=== PATIENT | male | born 1995 | race Caucasian/White ===

== ENCOUNTER 2017-01-11 17:39 | Inpatient (IN) | payer MEDICARE, MEDICAID ==
[~2017-01-11] VITALS: Ht 165.1 cm; Wt 66.4 kg
--- NOTE | 2017-01-13 10:52 | CO ---
ADMIT: 01/11/2017 RM/LOC: 527 [facility] MR#: [id number] [address] REINALDO BARRIOS KAREN [address] [place] [address] Consultation SEX: M AGE: 21 : 1995 DATE OF CONSULTATION: 01/12/2017 ATTENDING PHYSICIAN: Wes Dang CONSULTING PHYSICIAN: Shiv Knox MD REASON FOR CONSULTATION: Chronic kidney disease, stage 5. HISTORY OF PRESENT ILLNESS: The patient is a 21-year-old gentleman, who was previously under the care of Dr. Soto, and established care with myself towards the end of last year. He has a history of end-stage renal disease the etiology of which is unclear. He had been on in-center hemodialysis for 2 to 3 months and eventually received a donor kidney transplant in May 2011. He had a kidney biopsy in the year 2013 that was consistent with chronic rejection. He eventually lost contact with his transplant center and according to the report that I received from the emergency room, he has been deemed not to be a candidate for a kidney transplant, which I believe is true. As far as his immune suppression, he has been on prednisone only. He reports that he had been unable to afford his medications and had been off immune suppression for quite a while. He also a hospitalization in [place] in June 2016 with decreased kidney function and hypertensive urgency. He had labs drawn yesterday and was noted to have a creatinine of around 7.5. This is consistent with his declining allograft function. I evaluated him at the bedside earlier this morning. He is accompanied to the room by his sister. He does not feel too bad. He has been eating and drinking okay. His urine output is okay. Denies any urinary complaints. He has sequelae of chronic kidney disease including anemia and metabolic acidosis. He denies any other focal complaints. Denies any nausea or dyschezia. He is sleeping fairly well, just some occasional weakness. REVIEW OF SYSTEMS: A complete review of system is otherwise negative in detail except as mentioned in history of present illness above. PAST MEDICAL HISTORY: 1. Chronic kidney disease, stage 5, etiology unclear. 2. donor kidney transplant in the year 2010. 3. Anemia in chronic kidney disease. 4. Hypertension. 5. Hypertensive urgency. 6. Kidney transplant. 7. Left arm fistula placement, this fistula has failed. ALLERGIES: NO KNOWN DRUG ALLERGIES. MEDICATIONS: Reviewed in the chart. SOCIAL HISTORY: Denies any tobacco, alcohol, or recreational drug use. ADMIT: 01/11/2017 RM/LOC: 527 [facility] MR#: [id number] [address] [place] [id number] KAREN MORENO [address] [place] [address] Consultation SEX: M AGE: 21 : 1995 FAMILY HISTORY: Denies any family history of chronic kidney disease, or renal replacement therapy. PHYSICAL EXAMINATION: VITAL SIGNS: Temperature 97.3 Fahrenheit, pulse 72, blood pressure 138/85, saturating 99% on room air. GENERAL: He is comfortable. HEENT: Head is nontraumatic and normocephalic. Extraocular movements are intact. Pale conjunctivae. Dry mucosa. NECK: Supple without any JVD. CHEST: Clear to auscultation. CVS: Regular rhythm. S1 and S2. No rubs, murmurs, rubs. ABDOMEN: Soft. Nontender. EXTREMITIES: No edema. SKIN: No rash or nodules. NEUROLOGIC: Alert, awake, and oriented x3. He move all his extremities. No asterixis. LABORATORY DATA: Reviewed. His BUN was 62, creatinine 7.6, GFR of 9 mL/minute. Sodium 142, potassium 3.9, CO2 of 19. His hemoglobin was 9.2, with a platelet count of 196. Urinalysis 2+ protein, trace blood, and negative leukocyte esterase. ASSESSMENT/PLAN: 1. Chronic kidney disease, stage 5. 2. Chronic allograft rejection, status post kidney transplant. 3. Hypertension. 4. Metabolic acidosis. 5. Anemia in chronic kidney disease. 6. Renal osteodystrophy-he continues to have declining allograft function with a GFR less than 10 mL/minute. He has all the sequelae of chronic kidney disease including anemia, renal osteodystrophy, as well as ADMIT: 01/11/2017 RM/LOC: 527 [facility] MR#: [id number] [id number] [address] KAREN MORENO [address] [place] [address] Consultation SEX: M AGE: 21 : 1995 hypertension. I do think he will benefit from renal replacement therapy. I have previously tried to get him evaluated by Vascular Surgery as an outpatient, but I have been unable to do so because of some financial issues. He will need an access placed for dialysis, and I will consult Interventional Radiology for a permanent dialysis catheter. He plans to discuss this with his sister and get back to me later this morning. I do recommend proceeding with dialysis at this time. I also discussed with him that in his current situation, he will not be getting a kidney transplant immediately and it is my understanding that he has been deemed to be not a candidate by [facility] transplant program as well. Thank you for this consultation. Please do not hesitate to contact with any questions. Shiv Knox MD/ jorge JOB #: [id number] CC: Wes Dang, Attending Physician Wes Dang, Family Physician
--- NOTE | 2017-01-16 21:37 | ER ---
ADMIT: 01/11/2017 RM/LOC: 527 [facility] MR#: [id number] [address] [address] KAREN MORENO [address] [place] [address] Emergency Room Report SEX: M AGE: 21 : 1995 DATE: 01/11/2017 ADDENDUM: This patient comes to the ER because he had routine blood draws done today in Dr. Knox's office, and his creatinine was 7.0 and told to come here. He had a kidney transplant done in 2011, and according to the patient, his kidney has been failing over the last few years. He does not recall his last creatinine, but was sent here from Dr. Knox's office. I spoke with Dr. Liu, who is the surgeon in [place], and he states that the failure is not acute and there was no way to save it. The patient needs to be set up for dialysis and to follow up with his physician being Dr. Knox. I spoke with Dr. Knox. He left orders for the patient and also Dr. Dang. In the ER, his hemoglobin was 9.5, his creatinine was 7.8, BUN 60, and CO2 was 20. DIAGNOSES: 1. Kidney failure. 2. History of kidney transplant. Please see my T-sheet. KEO Berger / Abdirizak Boss MD / modl JOB #: [id number] CC: Wes Dang MD, Attending Physician Wes aDng MD, Family Physician
--- NOTE | 2017-01-20 08:37 | HP ---
ADMIT: 01/11/2017 RM/LOC: 527 [facility] MR#: [id number] [id number] [address] KAREN MORENO [address] [place] [address] History and Physical SEX: M AGE: 21 : 1995 DATE OF SERVICE: 01/12/2017 CHIEF COMPLAINT: 1. Azotemia. 2. Chronic kidney disease, stage 5. HISTORY OF PRESENT ILLNESS: Karen is a 21-year-old, , city-call patient normally seen by Dr. Knox as an outpatient for his stage 5 CKD. He was sent to the Emergency Department, because he was found have a creatinine of [address] Knox's office. He is otherwise making good urine. He has not had any chest pain, nausea, vomiting, fevers, pelvic pain, cough, dysuria, frequency, or urgency. PAST MEDICAL HISTORY: 1. Remarkable for stage 5 chronic kidney disease. 2. History of kidney transplant in 2011. 3. History of noncompliance with his transplant followup, and subsequently was discharged from the transplant clinic at [facility]. 4. Hypertension. 5. Anemia of chronic disease. PAST SURGICAL HISTORY: 1. Kidney transplant, 2011. 2. Left arm fistula placement, he states approximately 6 years ago. ALLERGIES: NONE. MEDICATIONS: His outpatient medications include: 1. Hydralazine 50 mg one half tab t.i.d. 2. Amlodipine 5 mg daily. 3. Carvedilol 12.5 mg twice daily. 4. Prednisone 2.5 mg daily. SOCIAL HISTORY: Denies any alcohol, tobacco, or recreational drug use. 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 FAMILY HISTORY: Noncontributory. REVIEW OF SYSTEMS: Unremarkable. PHYSICAL EXAMINATION: VITAL SIGNS: Blood pressure is 123/66, pulse 75, respirations 16, temp 96.8, O2 saturation is 99% on room air. GENERAL: He is awake, alert, no acute distress. HEENT: Normocephalic, atraumatic. NECK: Supple. No lymphadenopathy. No thyromegaly. HEART: Regular rate and rhythm. No murmurs, gallops, or rubs. LUNGS: Clear to auscultation bilaterally. ABDOMEN: Soft, nontender, nondistended. No rebound, guarding, or masses. EXTREMITIES: No cyanosis, clubbing, or edema. ADMIT: 01/11/2017 RM/LOC: 527 [facility] MR#: [id number] [id number] [address] KAREN MORENO [address], [place] [address] History and Physical SEX: M AGE: 21 : 1995 LABORATORY AND X-RAY DATA: His basic metabolic profile this morning shows a sodium 142, potassium 3.9, chloride 112, CO2 of 19, BUN 62, glucose 84, creatinine 7.6, calcium 6.9. PT, PTT, INR are unremarkable. His CBC shows a hemoglobin of 9, white count of 9.7, platelets of 196. UA; trace blood, 30 of glucose, and 2+ protein. ASSESSMENT: 1. Stage 5 chronic kidney disease. 2. Hypertension. 3. Hypocalcemia. 4. Anemia of chronic disease. 5. History of noncompliance resulting in discharge from the renal transplant Clinic in 2014. PLAN: Dr. Knox with Nephrology is aware of the patient and will be managing his chronic kidney disease. I have written for a gram of calcium gluconate to replace his calcium this morning. We will continue his antihypertensive regimen at this time. Further management will be dependent on Karen's clinical course and whatever is decided between he and Dr. Knox for his chronic kidney disease. Wes Dang MD/ jorge JOB #: [id number] CC: Wes Dang, Attending Physician Wes Dang, Family Physician
[2017-01-21] MEDS ORDERED: CARVEDILOL25 MG PO (17:57)
[2017-01-21] MEDS ORDERED: APRESOLINE-DPS50 MG PO (17:57)
[2017-01-21] MEDS ORDERED: NORVASC DPS10 MG PO (17:57)
[2017-01-21] MEDS ORDERED: DELTASONE DPS5 MG PO (17:58)
[2017-01-21] MEDS ORDERED: ROCALTROL DP0.25 MCG PO (17:59)
[2017-01-21] MEDS ORDERED: TYLENOL DPS325 MG PO (17:59)
[2017-01-21] MEDS ORDERED: VITAMIN D35000 UNI1 PO (17:59)
--- NOTE | 2017-02-19 08:27 | DS ---
ADMIT: 01/11/2017 RM/LOC: 527 [facility] MR#: [id number] [address] [address] KAREN MORENO [address] [place] [address] General Discharge Summary SEX: M AGE: 21 : 1995 ADMISSION DATE: 01/11/2017 DISCHARGE DATE: 01/20/2017 ADMITTING DIAGNOSES: 1. Stage V chronic kidney disease. 2. History of kidney transplant in 2011. 3. History of noncompliance of transplant followup and subsequent discharge from the [facility] Transplant Clinic for noncompliance. 4. Hypertension. 5. Anemia of chronic disease. 6. Failure of kidney transplant. DISCHARGE DIAGNOSES: 1. Stage V chronic kidney disease. 2. History of kidney transplant in 2011. 3. History of noncompliance of transplant followup and subsequent discharge from the [facility] Transplant Clinic for noncompliance. 4. Hypertension. 5. Anemia of chronic disease. 6. Failure of kidney transplant. CONSULTATIONS: Dr. Knox, Nephrology consulted on 01/12/2017. HISTORY AND PHYSICAL EXAMINATION: Karen is a 21-year-old male, who normally sees Dr. Knox as an outpatient for his stage 5 chronic kidney disease. He was sent to the emergency room by Dr. Knox because he was found to have a creatinine of [address] Knox's office. His electrolytes were stable. His fluid status was euvolemic, but it was determined that he needs to be started on dialysis and this could not be done as an outpatient. On his initial exam, his vitals were stable. He was afebrile. He was markedly uremic and azotemic on his metabolic profile, but otherwise remainder of his electrolytes were acceptable. HOSPITAL COURSE: Karen's hospital course was overall unremarkable. He was hypertensive early on in his hospital stay. His blood pressure medicines were adjusted accordingly to improve his blood pressure control. He had a temporary dialysis catheter placed and was subsequently started on dialysis while in the hospital. Social Work was consulted and attempts were made to get Karen's set up with the appropriate outpatient resources in order to continue him on outpatient dialysis and try to prevent further admissions for this problem. Ultimately by the january, the arrangements were able to be made and we were able to discharge Karen to home. DISCHARGE CONDITION: Fair. Again, he is now chronically dialysis dependent. ADMIT: 01/11/2017 RM/LOC: 527 [facility] MR#: [id number] [address] [address] KAREN MORENO [address] [place] [address] General Discharge Summary SEX: M AGE: 21 : 1995 DISCHARGE MEDICATIONS: Include: 1. Hydralazine 50 mg one half tablet t.i.d. 2. Carvedilol 25 mg twice daily. 3. Amlodipine 10 mg daily. 4. Prednisone 2.5 mg daily. 5. Rocaltrol 0.25 mcg Wednesday, Wednesday, and Wednesday. 6. Vitamin D 5000 units daily. 7. Tylenol 325 mg every 4 hours as needed. FOLLOWUP: He is to follow up with Dr. Knox in 1 to 2 weeks and with myself in 1 to 2 weeks. Wes Dang MD/ rosalbal JOB #: [id number] CC: Wes Dang MD, Attending Physician Wes Dang MD, Family Physician
== END 2017-01-20 18:24 | disposition home or self-care (01) | DRG 698 ==
LOC: ER 17:39 → 5MS 19:36
PROVIDERS: ADMIT Family Medicine
PROC: B548ZZA Ultrasonography of Superior Vena Cava, Guidance (ICD-10-PCS; principal; 2017-01-13)
PROC: B5181ZA Fluoroscopy of Superior Vena Cava using Low Osmolar Contrast, Guidance (ICD-10-PCS; principal; 2017-01-13)
PROC: 02HV33Z Insertion of Infusion Device into Superior Vena Cava, Percutaneous Approach (ICD-10-PCS; principal; 2017-01-13)
PROC: 5A1D60Z (ICD-10-PCS; 2017-01-13)
DX: T86.11 Kidney transplant rejection (principal); N18.6 End stage renal disease; E87.2 Acidosis; E87.6 Hypokalemia; I12.9 Hypertensive chronic kidney disease with stage 1 through stage 4 chronic kidney disease, or unspecified chronic kidney disease; E55.9 Vitamin D deficiency, unspecified; D63.1 Anemia in chronic kidney disease; N25.0 Renal osteodystrophy; Z91.19 Patient's noncompliance with other medical treatment and regimen; Z79.52 Long term (current) use of systemic steroids